=== PATIENT | female | born 1950 | race Caucasian/White ===

== ENCOUNTER → 2018-02-21 | Outpatient (CLI) | payer OTHER ==
[~2018-02-21] VITALS: Ht 162.6 cm; Wt 53.3 kg
[~2018-02-21] MED LIST: CLONAZEPAM 1 MG1 M1 PO; GABAPENTIN 100100 MG PO; HYDROCODONE-APA1 TA1 PO; KLONOPIN2 MG PO; LAMICTAL100 MG PO; MOBIC15 MG PO; NASACORT10.8 ML NASAL; NEURONTIN 300300 M1 PO; NEXIUM20 M1 PO; NEXIUM40 MG PO; NORCO 10-325 T1 EACH PO; SKELAXIN 800 M800 M1 PO; VYVANSE20 MG PO; VYVANSE40 MG PO; ZOLOFT50 MG PO
[2018-02-21 10:22] VITALS: BP 139/86
[2018-02-21 16:24] LABS: ABSOLUTE NEUTROPHILS 4.7 thou/uL (1.4-8.2); BASOPHILS 0.9 % (0.0-2.0); EOSINOPHILS 1.3 % (0.0-3.0); HEMATOCRIT 32.7 % (37.0-47.0); LYMPHOCYTES 13.4 % (24.0-44.0); MCH 35.6 pg (26.0-34.0); MCHC 33.7 g/dL (28.0-37.0); MCV 105.7 fL (80.0-100.0); MONOCYTES 8.7 % (1.0-8.0); PLATELET COUNT 193 thou/uL (150-400); POLYS 75.7 % (36.0-66.0); RDW 13.9 % (10.5-14.5); WBC 6.2 thou/uL (4.0-11.0)
[2018-02-21 16:43] LABS: ALBUMIN 2.6 g/dL (3.4-5.0); ANION GAP 10 mmol/L (7-16); BUN 10 mg/dL (7-18); CALCIUM 9.5 mg/dL (8.5-10.1); CHLORIDE 104 mmol/L (98-107); CHOLESTEROL 214 mg/dL (<200); CO2 26 mmol/L (21-32); CREATININE 0.8 mg/dL (0.6-1.0); GLUCOSE 104 mg/dL (74-106); HDL CHOLESTEROL 60 mg/dL (>40); LDL CHOLESTEROL 127 mg/dL (<100); POTASSIUM 4.2 mmol/L (3.5-5.1); SERUM ASSESSMENT Clear; SGOT 52 U/L (15-37); SGPT 35 U/L (30-65); SODIUM 140 mmol/L (136-145); TC:HDL 3.6 Ratio (Not establshd); TOTAL BILIRUBIN 1.1 mg/dL (<0.1-1.0); TOTAL PROTEIN 6.5 g/dL (6.4-8.2); TRIGLYCERIDE 139 mg/dL (<150); VLDL 28 mg/dL (<40)
[2018-02-21 17:19] LABS: TSH 1.552 uIU/mL (0.358-3.740)
[2018-02-22 03:06] LABS: GLYCOHEMOGLOBIN (HGB A1C) 4.3 % (4.8-5.6)
[2018-02-22 09:50] LABS: URINE BLOOD NEGATIVE (Negative); URINE CLARITY CLEAR; URINE COLOR YELLOW; URINE GLUCOSE-RANDOM* NEGATIVE (Negative); URINE KETONES NEGATIVE (Negative); URINE LEUKOCYTES-REFLEX NEGATIVE (Negative); URINE NITRITE-REFLEX NEGATIVE (Negative); URINE PROTEIN (DIPSTICK) TRACE (Negative); URINE SPECIFIC GRAVITY >= 1.030 (1.005-1.035); URINE UROBILINOGEN 0.2 E.U./dl (0.2-1.0)
[2018-02-22 09:54] LABS: ICTOTEST (BILI CONFIRMATORY) Negative (Negative); URINE BILIRUBIN NEGATIVE (Negative)
== END ==
LOC: SEN 08:26
PROVIDERS: Nurse Practitioner Family
DX: Z09 Encounter for follow-up examination after completed treatment for conditions other than malignant neoplasm (principal); K21.9 Gastro-esophageal reflux disease without esophagitis; Z79.899 Other long term (current) drug therapy

== ENCOUNTER → 2018-03-20 | Outpatient (CLI) | payer OTHER ==
[~2018-03-20] MED LIST changes: +CULTURELLE1 EACH PO; +K-DUR 20 MEQ T20 MEQ PO; +LOPERAMIDE 2 MG2 M1 PO; +MUCINEX100 MG PO; +TRAZODONE HCL50 MG
[2018-03-20 14:49] VITALS: BP 127/81
[2018-03-20 15:04] LABS: ALBUMIN 2.7 g/dL (3.4-5.0); CALCIUM 9.7 mg/dL (8.5-10.1); CREATININE 0.8 mg/dL (0.6-1.0); POTASSIUM 4.6 mmol/L (3.5-5.1); TOTAL BILIRUBIN 0.7 mg/dL (<0.1-1.0); TOTAL PROTEIN 6.6 g/dL (6.4-8.2)
== END ==
LOC: SEN 09:05
PROVIDERS: Nurse Practitioner Family
DX: Z09 Encounter for follow-up examination after completed treatment for conditions other than malignant neoplasm (principal); E87.6 Hypokalemia; R94.5 Abnormal results of liver function studies; K21.9 Gastro-esophageal reflux disease without esophagitis

== ENCOUNTER → 2018-04-03 | Outpatient (CLI) | payer OTHER ==
[2018-04-03 14:40] VITALS: BP 127/76
== END ==
LOC: SEN 11:25
DX: F43.10 Post-traumatic stress disorder, unspecified (principal); M79.7 Fibromyalgia; K52.9 Noninfective gastroenteritis and colitis, unspecified; F32.9 Major depressive disorder, single episode, unspecified; F41.9 Anxiety disorder, unspecified; K08.4 Partial loss of teeth; X58.XXXA Exposure to other specified factors, initial encounter; Y93.89 Activity, other specified; Y92.89 Other specified places as the place of occurrence of the external cause; Y99.8 Other external cause status

== ENCOUNTER → 2018-05-16 | Outpatient (CLI) | payer OTHER ==
[~2018-05-16] MED LIST changes: +APRODINE TABLE1 EACH PO
[2018-05-16 15:57] LABS: ABSOLUTE NEUTROPHILS 4.2 thou/uL (1.4-8.2); BASOPHILS 0.6 % (0.0-2.0); EOSINOPHILS 1.6 % (0.0-3.0); HEMATOCRIT 35.3 % (37.0-47.0); HEMOGLOBIN 11.9 gm/dL (12.0-15.0); LYMPHOCYTES 15.5 % (24.0-44.0); MCH 31.8 pg (26.0-34.0); MCHC 33.8 g/dL (28.0-37.0); MCV 94.2 fL (80.0-100.0); MONOCYTES 8.5 % (1.0-8.0); PLATELET COUNT 253 thou/uL (150-400); POLYS 73.8 % (36.0-66.0); RBC 3.75 mil/uL (4.20-5.00); RDW 14.6 % (10.5-14.5); WBC 5.7 thou/uL (4.0-11.0)
[2018-05-16 16:10] LABS: ALBUMIN 3.9 g/dL (3.4-5.0); CALCIUM 10.2 mg/dL (8.5-10.1); CREATININE 0.8 mg/dL (0.6-1.0); POTASSIUM 4.4 mmol/L (3.5-5.1); TOTAL BILIRUBIN 0.5 mg/dL (<0.1-1.0); TOTAL PROTEIN 7.8 g/dL (6.4-8.2)
== END ==
LOC: SEN 08:47
PROVIDERS: Nurse Practitioner Family
DX: I87.2 Venous insufficiency (chronic) (peripheral) (principal); K08.1 Complete loss of teeth; R94.5 Abnormal results of liver function studies; R54 Age-related physical debility; Z72.9 Problem related to lifestyle, unspecified

== ENCOUNTER → 2018-06-13 | Outpatient (CLI) | payer OTHER | LOC: ULTRA 06-07 11:00 | DX: K55.059 Acute (reversible) ischemia of intestine, part and extent unspecified (principal); R94.5 Abnormal results of liver function studies; R74.8 Abnormal levels of other serum enzymes; Z86.59 Personal history of other mental and behavioral disorders ==

== ENCOUNTER → 2018-10-03 | Outpatient (CLI) | payer OTHER | LOC: SEN 13:31 | DX: M79.645 Pain in left finger(s) (principal); M79.644 Pain in right finger(s); M79.671 Pain in right foot; M79.672 Pain in left foot; K02.9 Dental caries, unspecified; F41.8 Other specified anxiety disorders; Z79.899 Other long term (current) drug therapy; Z72.89 Other problems related to lifestyle ==